=== PATIENT | female | born 1960 | race Asian ===

== ENCOUNTER 2025-05-03 19:16 | Emergency (ER) | payer MEDICAID, SELFPAY ==
[2025-05-03 19:25] VITALS: BP 142/76; PULSE 82; RESP 16; TEMP 36.9; O2SAT 97; BMI 29.4
--- NOTE | 2025-05-03 19:31 | ED_ITS ---
HPI - General Adult General Chief complaint: Urogenital-Female Stated complaint: pain when urinating Time Seen by Provider: 05/03/25 22:37 Source: patient Mode of arrival: ambulatory Limitations: language barrier (Family Marketing Graphics Specialist utilized) History of Present Illness ED Provider: Wilfrid RAMOS HPI narrative: The patient is a 64-year-old Chadian speaking female who lives in [place] but is currently visiting family in the area who presents to the ED with her family member reporting patient has been experiencing intermittent episodes of dysuria with increased urinary frequency over the past few months, but has not previously sought evaluation. Patient reports symptoms reoccurred today while she was visiting family prompting ED evaluation. The patient denies associated fever/chills, nausea, vomiting, vaginal discharge, or irregular vaginal bleeding. The patient does report she is experiencing associated vulvovaginal itching and burning sensation even when not urinating. The patient reports a sensation of vaginal dryness. Related Data Previous Rx's ?Medication ?Instructions ?Recorded clotrimazole 2 % vaginal cream 1 appful vaginal BEDTIM E 3 days 05/03/25 (3-Day Vaginal) #21 grams Allergies Allergy/AdvReac Type Severity Reaction Status Date / Time No Known Allergies Allergy Verified 05/03/25 19:40 Review of Systems 2 Review of Systems: Yes all other systems are reviewed and are negative PMFSH Social History Social History Smoked in Last 30 Days: No Use of substances other than those prescribed or required for medical reasons: No Advance Directives: No Advance Directives Information Provided: No Do you have a plan to hurt others: No Plan Physical Exam ED Vital Signs: Vital Signs - 24 hr 05/03/25 19:25 05/03/25 20:52 05/03/25 20:54 Temperature 98.5 F 98.0 F 98.0 F Pulse Rate 82 71 71 Respiratory Rate 16 16 16 Blood Pressure 142/76 H 136/59 L 136/59 L Pulse Oximetry 97 94 95 Oxygen Delivery Method Room Air Room Air Room Air BMI result Body Mass Index 29.4 CONSTITUTIONAL: The patient appears non-toxic, well nourished and in no acute distress. Vital signs as documented. HEAD: Atraumatic, normocephalic. EYES: EOMs grossly intact, pupils equal, conjunctiva clear, no exudate. ENT: Nares patent, no discharge. Airway patent, no audible stridor, visible mucosa is pink and moist without noted lesions. NECK: Trachea is midline, no obvious masses or gross abnormalities. CHEST: Symmetric movement, normal appearance. LUNGS: LS present and CTAB, no w/r/r. Non-labored work of breathing. CARDIAC: Regular Rhythm, S1/S2 appreciated, no murmurs, rubs or gallops. ABDOMEN: Abdomen soft and non-tender x4 quadrants, no palpable masses or organomegaly. : An external vaginal exam was performed with female civil drafting technician present to bonding and composite fabricator. External exam shows no drainage, there is minimal erythema noted to the labia, no evidence of cellulitis. EXTREMITIES: Normal tone, moves all extremities spontaneously without reported pain. No obvious acute injury or deformity noted. NEURO: Alert and oriented x3, CN II-XII appear grossly intact. Cerebellar Functioning grossly intact. No obvious sensory or motor deficits. Speech clear and appropriate. PSYCH: normal affect, appropriate eye contact, fluid speech, with appropriate response to questioning. No reported suicidality or homicidality. SKIN: Warm, dry, color appropriate, normal turgor. No rashes noted. Course Course Course Narrative: This is a rapid medical exam performed by Irma Lemus NP: Additional HPI, ROS, PE not included below will be deferred to primary provider. Patient is a 64-year-old Korean speaking female presenting to the ED with complaint of dysuria and subjective fever since this morning. Just returned to the [place] on the or from [employer]. Plan: UA, labs, viral serology Medical Decision Making Medical Decision Making MDM Narrative: 11:02 PM 05/03/2025 (Fabiola RAMOS): The patient is a 64-year-old female presenting to the ED for evaluation of a recurrent episode of dysuria which she has been experiencing intermittently over the past few months. Patient reports associated burning sensation and itching even when not urinating, reports associated sensation of dryness. The patient's laboratory evaluation is markedly reassuring, no leukocytosis, anemia, significant electrolyte abnormality, or ALEX. The patient's urinalysis shows small leukocyte esterase but otherwise no abnormalities, no nitrites, WBCs, or bacteria. The patient's viral swab is negative. The patient's exam shows mild erythema of the labia, no obvious vaginal discharge. Abdominal exam is nontender, no indication for CT/US imaging. The patient's nature and timeline of symptoms is less consistent with UTI and more consistent with atrophic vaginitis versus vaginal candidiasis. The patient will be treated empirically with clotrimazole cream and discharged to follow up with PCP upon return home. Admission/Observation Consideration of admission/observation: Escalation of care including admission/observation considered Lab Data MDM Lab Attestation statement: I reviewed the patient's lab results. 05/03/25 19:54 05/03/25 19:54 Labs: Lab Results 05/03/25 Range/Units 19:54 WBC 8.4 (4.8-10.8) X10*3/uL RBC 4.29 (4.20-5.50) X10*6/uL Hgb 13.9 (12.0-16.0) g/dl Hct 40.2 (37.0-47.0) % MCV 93.7 (80.0-98.0) fL MCH 32.4 (27.0-33.0) pg MCHC 34.6 (31.0-35.0) g/dl RDW 13.8 (11.0-16.0) % Plt Count 244 (160-400) X10*3/uL MPV 8.2 L (9.4-12.3) fL Immature Gran % (Auto) 0.2 (0.0-0.4) % Neut % (Auto) 63.5 (45-73) % Lymph % (Auto) 26.6 (20-40) % [place] % (Auto) 8.3 (2-11) % Eos % (Auto) 1.0 (0-4) % Baso % (Auto) 0.4 (0-2) % Lymph # (Auto) 2.2 (1.2-4.9) X10*3/uL [place] # (Auto) 0.7 (0.1-1.2) X10*3/uL Eos # (Auto) 0.1 (0.0-0.4) X10*3/uL Baso # (Auto) 0.0 (0.0-0.2) X10*3/uL Abs Immat Gran (auto) 0.02 (0.00-0.03) X10*3/uL Absolute Neuts (auto) 5.3 (2.0-8.3) x10*3/uL Absolute Nucleated RBC 0.000 (0.0-0.012) X10*3/uL Nucleated RBC % (auto) 0.0 (0.0-0.2) /100WBC Sodium 144 (135-145) mmol/L Potassium 4.2 (3.3-5.1) mmol/L Chloride 109 H (96-108) mmol/L Carbon Dioxide 28 (22-29) mmol/L Anion Gap 11 L (12-20) BUN 7 L (9-16) mg/dL Creatinine 0.67 (0.5-1.4) mg/dL Estim Creat Clear Calc 82.4 Estimated GFR > 60 Random Glucose 102 (60-115) mg/dL Calcium 9.6 (8.4-10.2) mg/dL Total Bilirubin 0.9 (0.0-1.0) mg/dL AST 25 (5-31) U/L ALT 20 (0-31) U/L Alkaline Phosphatase 79 (39-117) U/L Total Protein 7.5 (6.5-8.0) g/dL Albumin 4.4 (3.5-5.0) g/dL Urine Color Yellow Urine Appearance Clear Urine pH 8.5 (5.0-9.0) Ur Specific [place] <= 1.005 (1.005-1.025) Urine Protein Negative (Neg-Trace) mg/dL Urine Glucose (UA) Negative (Negative) mg/dL Urine Ketones Negative (Negative) mg/dL Urine Blood Negative (Negative) Urine Nitrite Negative (Negative) Ur Leukocyte Esterase Small (1+) H (Negative) Urine RBC 0-2 (0-2) /HPF Urine WBC 0-5 (0-5) /HPF Ur Squamous Epith Cells 0-2 (0-2) /HPF Urine Bacteria None Seen (None Seen) Hyaline Casts 0-2 (0-2) /LPF Influenza Type A (PCR) NEGATIVE (Negative) Influenza Type B (PCR) NEGATIVE (Negative) RSV RNA Qual (PCR) NEGATIVE (Negative) SARS-CoV-2 RNA (RT-PCR) NEGATIVE (Negative) Discharge Plan Discharge Clinical Impression: Vaginitis Qualifiers: Chronicity: acute Qualified Code(s): N76.0 - Acute vaginitis Patient Disposition: Home, Self-Care Instructions: Yeast Infection (ED), Vaginal Atrophy (ED) Additional Instructions: Thank you for choosing [facility] Emergency Department for your care today. Your laboratory evaluation, urinalysis, and exam today are reassuring. There is no evidence of an active urinary tract infection. Your exam and symptoms are more consistent with likely atrophic vaginitis versus vulvovaginal candidiasis, more commonly known as a yeast infection. At this time there is no evidence of an acute process requiring admission to the hospital or continued ED observation, and it is safe to discharge you home. Seeing as your workup shows no evidence of a urinary tract infection, there is no indication for antibiotics. We are treating you however with an antifungal cream called clotrimazole. The cream should treat a yeast infection and also may improve vaginal dryness which may relieve symptoms. Please apply the cream as prescribed. You may take alternating (staggered) doses of ibuprofen 600mg and Tylenol 1000mg every 4 hours as needed for any additional pain. Please follow up with your PCP or hotel reservation agent for re-evaluation of your symptoms and consideration of additional treatments for vaginal dryness. If you do not have a primary care physician, please call the [facility] at [phone] to establish a new primary care physician. While waiting to establish your new primary care physician, you can call our [facility]in [facility] at [phone] for non-emergency needs. Please return to the emergency department if you develop a severe or sudden change in your symptoms, a fever over 100.4 that does not improve with Tylenol or Ibuprofen, recurrent vomiting, or any other new or worsening symptoms or concerns. Prescriptions: New 3-Day Vaginal 2 % cream 1 appful vaginal BEDTIME 3 Days Qty: 21 0RF Print Language: Chadian (Korean)
--- NOTE | 2025-05-03 19:43 | PC.NURSE ---
PT left abruptly to go to the bathroom while british virgin islander wood turner on the line. unable to get pharmacy information
[2025-05-03 20:00] LABS: MANUAL DIFF FLAG NO
[2025-05-03 20:01] LABS: Hematocrit 40.2 % (37.0-47.0); Hemoglobin 13.9 g/dl (12.0-16.0); Imm Gran Abs Auto 0.02 X10*3/uL (0.00-0.03); Imm Gran Pct Auto 0.2 % (0.0-0.4); Lymphocytes Absolute Auto 2.2 X10*3/uL (1.2-4.9); Mean Corpuscular HGB Conc 34.6 g/dl (31.0-35.0); Mean Corpuscular Hemoglobin 32.4 pg (27.0-33.0); Mean Corpuscular Volume 93.7 fL (80.0-98.0); NRBC Abs Auto 0.000 X10*3/uL (0.0-0.012); NRBC Pct Auto 0.0 /100WBC (0.0-0.2); Platelet Count 244 X10*3/uL (160-400); Red Blood Count 4.29 X10*6/uL (4.20-5.50); White Blood Count 8.4 X10*3/uL (4.8-10.8)
[2025-05-03 20:08] LABS: Appearance Urine Clear; Glucose Urine UA Negative (Negative); PH 8.5 (5.0-9.0); Specific Gravity - Urine <= 1.005 (1.005-1.025); UMIC TRIGGER UACC YES
[2025-05-03 20:14] LABS: Alanine Aminotransferase 20 U/L (0-31); Albumin Level 4.4 g/dL (3.5-5.0); Alkaline Phosphatase 79 U/L (39-117); Anion Gap 11 (12-20); Aspartate Amino Transferase 25 U/L (5-31); Blood Urea Nitrogen 7 mg/dL (9-16); Calcium 9.6 mg/dL (8.4-10.2); Carbon Dioxide 28 mmol/L (22-29); Chloride 109 mmol/L (96-108); Creatinine Clr Calc Pharmacy 82.4; Estimated Glomerular Filt Rate > 60; Potassium 4.2 mmol/L (3.3-5.1); Sodium 144 mmol/L (135-145); Total Protein 7.5 g/dL (6.5-8.0)
[2025-05-03 20:15] LABS: UACC Culture Trigger YES
[2025-05-03 20:37] LABS: Resp Syncy Virus RNA Qual PCR NEGATIVE (Negative); SARS COV2 PCR INHOUSE NEGATIVE (Negative)
[2025-05-03 20:52] VITALS: BP 136/59; PULSE 71; RESP 16; TEMP 36.7; O2SAT 94
[2025-05-03 20:54] VITALS: BP 136/59; PULSE 71; RESP 16; TEMP 36.7; O2SAT 95
--- NOTE | 2025-05-03 21:08 | MHC.EDTECH ---
Bladder scan completed- 93 mL
[2025-05-03 23:39] VITALS: BP 136/59; PULSE 71; RESP 16; TEMP 36.7; O2SAT 95
== END 2025-05-03 23:40 | disposition home or self-care (01) ==
PROVIDERS: Registered Nurse Emergency; Emergency Provider Emergency Medicine
DX: N76.0 Acute vaginitis (principal); R30.0 Dysuria; R35.0 Frequency of micturition; L29.2 Pruritus vulvae; Z79.899 Other long term (current) drug therapy; Z03.818 Encounter for observation for suspected exposure to other biological agents ruled out
CPT/HCPCS: 80053; 81001; 81003; 85025; 87086; 87637; 99283; 99284